=== PATIENT | female | born 1985 | race Hispanic/Latino ===

== ENCOUNTER 2022-10-31 09:23 | Observation (INO) | payer OTHER ==
[2022-10-30 08:38] LABS: BASOPHILS % (AUTO) 0.5 % (0.0-5.0); EOSINOPHILS % (AUTO) 4.1 % (0.0-8.0); HEMATOCRIT 43.1 % (36-48); LYMPHOCYTES % (AUTO) 21.8 % (21.0-51.0); MEAN CORPUSCULAR HEMOGLOBIN 28.8 pg (27.0-33.0); MEAN CORPUSCULAR HGB CONC 31.6 g/dL (32.0-36.0); MEAN CORPUSCULAR VOLUME 91.3 fL (79-99); MONOCYTES % (AUTO) 6.8 % (3.0-13.0); NEUTROPHILS % (AUTO) 66.3 % (40.0-77.0); PLATELET COUNT (AUTO) 209 K/uL (130-400); RED BLOOD CELL COUNT(AUTO) 4.72 MIL/uL (4.00-5.50); RED CELL DISTRIBUTION WIDTH 13.3 % (11.0-15.5); WHITE BLOOD COUNT (AUTO) 4.4 K/uL (4.8-10.8)
[2022-10-30 08:45] LABS: CREATININE 0.9 mg/dL (0.5-1.5); POTASSIUM 4.7 mmol/L (3.5-5.1)
[2022-10-30 09:16] VITALS: BP 105/67
[~2022-10-31] VITALS: Ht 157.5 cm; Wt 59.1 kg
[2022-10-31] VITALS (21 sets, daily range): BP systolic 93–129; BP diastolic 44–75
[2022-10-31] MEDS ORDERED: CEFAZOLIN SODIUM 2 GM VIAL ONE (10:02)
[2022-10-31] MEDS ORDERED: LACTATED RINGERS 1000ML 1,000 ML IV ONE (10:02)
[2022-10-31] MEDS ORDERED: BUPIVACAINE/PF 0.5% 50ML 5 MG/ML VIAL ONE (14:02)
[2022-10-31] MEDS ORDERED: GLYCOPYRROLATE 1 MG/5 ML SYRINGE ONE ×2 (14:51→16:49)
[2022-10-31] MEDS ORDERED: SUCCINYLCHOLINE 200MG/10ML SYR ONE (14:51)
[2022-10-31] MEDS ORDERED: NEOSTIGMINE 5MG/5ML SYR IV ONE ×2 (14:51→16:49)
[2022-10-31] MEDS ORDERED: DEXAMETHASONE SOD PHOSPHATE 10MG/ML 1ML VIAL ONE (14:51)
[2022-10-31] MEDS ORDERED: LIDOCAINE PF 100MG/5ML (2%) SYRINGE 5ML ONE (14:51)
[2022-10-31] MEDS ORDERED: PROPOFOL 10 MG/ML 20ML VIAL IV ONE (14:51)
[2022-10-31] MEDS ORDERED: MIDAZOLAM HCL 1 MG/ML 2ML VIAL ONE (14:52)
[2022-10-31] MEDS ORDERED: FENTANYL CITRATE PF 50 MCG/1 ML 2ML VIAL ONE (14:52)
[2022-10-31] MEDS ORDERED: BUPIVACAINE/PF 0.5% 50ML 5 MG/ML VIAL IJ ONE (14:58)
[2022-10-31] MEDS ORDERED: ROCURONIUM 10MG/1ML SYR 10 MG/ML ML ONE (15:05)
[2022-10-31] MEDS ORDERED: CEFAZOLIN SODIUM 2 GM VIAL IVPB ONE (15:15)
[2022-10-31] MEDS ORDERED: EPHEDRINE SULFATE 50 MG/ML AMPULE ONE (15:27)
[2022-10-31] MEDS ORDERED: MEPERIDINE-PF 25 MG/ML SYG ONE ×2 (16:51→17:34)
[2022-10-31] MEDS ORDERED: PROCHLORPERAZINE 10MG/2ML INJ IV PRN ×2 (17:00→17:30)
[2022-10-31] MEDS ORDERED: ONDANSETRON 4MG INJ IVP PRN ×2 (17:00→17:30)
[2022-10-31] MEDS ORDERED: APAP/CODEINE 120/12MG 5ML PO PRN (23:30)
[2022-10-31] MEDS ORDERED: KETOROLAC 30MG VIAL (30MG/ML) IM ONE (23:30)
[2022-10-31] MEDS: LACTATED RINGERS 1000ML 1,000 ML IV SCH (23:59)
[2022-11-01] MEDS ORDERED: KETOROLAC 30MG VIAL (30MG/ML) IVP ONE
[2022-11-01 03:30] VITALS: BP 106/73
[2022-11-01 08:00] VITALS: BP 100/61
[2022-11-01] MEDS: KETOROLAC 15MG/ML VIAL (15MG/ML) IM PRN ×2 (08:38→17:10)
[2022-11-01] MEDS ORDERED: PANTOPRAZOLE 40 MG/VIAL IVP SCH (09:00)
[2022-11-01 11:30] VITALS: BP 108/66
[2022-11-01] MEDS: LACTATED RINGERS 1000ML 1,000 ML IV SCH (12:50)
[2022-11-01 16:00] VITALS: BP 107/63
== END 2022-11-01 18:50 | disposition home or self-care (01) ==
LOC: DAH 09:23 → DAHIP 09:24 → INTOOBSV 09:24 → DAH 09:25 → 3DH 18:05
PROVIDERS: ADMIT Surgery; ATTEND Surgery
DX: K44.9 Diaphragmatic hernia without obstruction or gangrene (principal); Z20.822 Contact with and (suspected) exposure to COVID-19; K21.9 Gastro-esophageal reflux disease without esophagitis; Z79.899 Other long term (current) drug therapy
CPT/HCPCS: 80048; 84703; 85025; 86850; 86900; 86901; 87426; 36415; 43327; 96374; 43235; 96372; 96375; 97161; 97039; 97116; A6260; A4663; J7030; J7120; J3010; J0330; J3490 ×3; J1100; J2710 ×2; J2001; J2250; J2704; J2405 ×3; J1885 ×3; J2175 ×2; J0690 ×2; G0168; C1769 ×3; A4649; A4930; C1781; A4215; A4223; A4222; A4221; A4600; G0378 ×7; C9113; J0780